=== PATIENT | female | born 1945 ===

== ENCOUNTER 2024-02-22 08:38 | Observation (INO) | payer OTHER ==
[2024-02-20 11:23] LABS: Absolute Basophils 0.1 K/uL (0-0.5); Absolute Eosinophils 0.2 K/uL (0-0.5); Absolute Lymphocytes (CBC) 1.7 K/uL (0.7-4.9); Absolute Monocytes 0.6 K/uL (0.1-1.3); Absolute Neutrophil 5.3 K/uL (1.8-8.0); Basophils % 0.8 % (0-1.3); Eosinophils % 3.1 % (0-4.4); Hematocrit 38.6 % (36.0-45.0); Lymphocytes % 21.9 % (15.3-44.8); MCH 29.7 pg (27.0-35.0); MCHC 33.7 g/dL (32.0-36.0); MCV 88.2 fL (80-100); MPV 8.2 fL (7.6-11.3); Monocytes % 7.4 % (3.3-12.3); Neutrophils % 66.8 % (41.7-73.7); Platelets 290 thou/uL (152-406); RBC Red Blood Cell Count 4.37 M/uL (3.86-4.86); Red Cell Distribution Width 13.2 % (12.1-15.2)
[2024-02-20 11:26] LABS: PT Prothrombin Time 10.5 SECONDS (9.4-12.5); PTT, Activated Partial Thromb 33.6 SECONDS (24.3-36.9); Protime INR 0.94
[2024-02-20 11:29] LABS: Specific Gravity 1.013 (1.005-1.030); Sqamous Epithelial <5 /HPF (None Seen); Urine Bacteria <20 /HPF (<20); Urine Bilirubin NEGATIVE (Negative); Urine Blood Negative (Negative); Urine Clarity Turbid (Clear); Urine Color Colorless (Yellow); Urine Culture Reflex Order NOT NEEDED; Urine Glucose NEGATIVE (Negative); Urine Ketones NEGATIVE (Negative); Urine Microscopic Reflex YN ORDER UMIC; Urine Mucus Slight /HPF (None Seen); Urine Nitrite NEGATIVE (Negative); Urine Protein NEGATIVE (Negative); Urine RBC <5 /HPF (None Seen); Urine Urobilinogen Normal (Normal); Urine pH 7.5 (5.0-7.0)
[2024-02-20 11:40] LABS: Anion Gap 8.7 mEq/L (5.0-15.0); Potassium 3.7 mEq/L (3.5-5.1)
[2024-02-22] MEDS: CEFAZOLIN SODIUM 1 GM/VIAL ONE ×2 (09:11→09:28)
[2024-02-22] MEDS: LIDOCAINE HCL/EPINEPHRINE 20 ML MDV ONE (09:28)
[2024-02-22] MEDS: NA CHLORIDE 0.9% 100 ML ONE (09:29)
[2024-02-22] MEDS: Ringers Lactate 1,000 ML IV ONE ×2 (09:30→12:45)
[2024-02-22] MEDS ORDERED: LIDOCAINE 2% MPF 5 ML VIAL ONE (09:45)
[2024-02-22] MEDS ORDERED: dexAMETHasone 10 MG/ML VIAL ONE (09:45)
[2024-02-22] MEDS ORDERED: ROCURONIUM 50 MG/5 ML VIAL IV ONE (09:45)
[2024-02-22] MEDS ORDERED: ONDANSETRON 4 MG/2 ML VIAL ONE (09:45)
[2024-02-22] MEDS ORDERED: MIDAZOLAM HCL 2 MG/2 ML INJ ONE (09:45)
[2024-02-22] MEDS ORDERED: propofoL 200 MG/20 ML VIAL IV ONE (09:45)
[2024-02-22] MEDS ORDERED: FENTANYL CITR 100 MCG/2 ML ONE (09:45)
[2024-02-22] MEDS ORDERED: KETOROLAC 30 MG/ML INJ ONE (09:45)
[2024-02-22] MEDS: NS 0.9% VIAL 10 ML ONE (09:46)
[2024-02-22] MEDS: NA CHLORIDE 0.9% 1,000 ML ONE (09:48)
[2024-02-22] MEDS: CEFAZOLIN SODIUM 2 GM/VIAL ONE (10:10)
[2024-02-22] MEDS: VASOPRESSIN 20 UNIT/ML VIAL ONE ×2 (10:10→11:47)
[2024-02-22] MEDS: NA CHLORIDE 0.9% 50 ML ONE (11:47)
[2024-02-22] MEDS ORDERED: GLYCOPYRROLATE 0.2 MG/ML SYR ONE (13:51)
[2024-02-22] MEDS ORDERED: NEOSTIGMINE 1 MG/ML -10 ML VIAL ONE (13:51)
[2024-02-22] MEDS ORDERED: MORPHINE 2 MG/ML SYR IV PRN (14:45)
[2024-02-22] MEDS ORDERED: ONDANSETRON 4 MG/2 ML VIAL IV PRN (14:45)
[2024-02-22] MEDS ORDERED: ACETAMINOPHEN 500 MG TAB PO PRN (14:45)
--- NOTE | 2024-02-22 14:51 | P.BOP ---
Preoperative diagnosis: stage 4 uterovaginal prolapse, KATHY Postoperative diagnosis: same, perineocele Primary procedure: Lefort's colpocleisis, post wall repair, perineocele repair, TO-MUS (TVT-O) Manager Play: Abigail Snider Estimated blood loss: 200 Specimen: none Findings: +1/+8/+10/6/thin/12/0/+8/+10, patent UOs Anesthesia: General Complications: None Drain(s): Urinary catheter Implants: TVT-O Fluids & blood products: LR 1300 UO 100 Transferred to: Recovery Room Condition: Good
--- OUTSIDE RECORDS SUMMARY | 2024-02-22 15:12 | XMS REPORT | Continuity of Care Document ---
Author Name Unknown Address [address] [place] [address] [facility] Address [address] [place] [address] Care Team Providers Care Patient Access Specialist Name Role Phone ALBANIA DE LA TORRE Primary Care Physician UnavailDERIAN Holland Attending Clinician UnavailMANUEL Heck Attending Clinician UnavailManuel Farias MD Attending Clinician [phone] Derian Cervantes MD Attending Clinician [phone] Radiology Attending Clinician Unavailable RADIOLOGY Attending Clinician Unavailable GC_GCBZW_Renee_S Attending Clinician UnavailMARICARMEN Saleh Attending Clinician Unavailable Maricarmen Torres Attending Clinician [phone] Unknown, Attending Attending Clinician UnavailCORAL Ahumada Attending Clinician Unavailable Coral Monge MD Attending Clinician [phone] Nurse, [facility] Attending Clinician Un available Pob, [facility] Attending Clinician Sandra Choi MD Attending Clinician [phone] SANDRA PATRICK Attending Clinician Unavailyael noonan Doctor Unassigned, [place] Attending Clinician U SUZETTE Miranda Attending Clinician Unavailable Suzette Kuhn Attending Clinician [phone] DERIAN CERVANTES Admitting Clinician MANUEL Palumbo Admitting Clinician Derian Nieves MD Admitting Clinician [phone] GC_GCBZW_Renee_S Admitting Clinician GEOVANNY Coleman Admitting Clinician UnavailSUZETTE Cruz Admitting Clinician Unavailable Payers Payer Name Policy Type Policy Number Effective Date Expirati on Date Source MEDICARE PART A \T\ B [id number] 2012 00:00:00 SHARON [id number] 2016 00:00:00 [id number] 2023 00:00:00 [id number] 2021 00:00:00 [place] [employer] [id number] 2012 00:00:00 SHAORN [id number] 2016 00:00:00 () [id number] Problems Condition Name Condition Details Condition Category Status Onset Date Resolution Date Last Treatment Date Treating Clinician Comments Source 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 2023-02 0-16 00:00: 00 [facility] Abnormal uterine bleeding Abnormal Uterine Bleeding Problem Active 2023-02 0-10 00:00: 00 [facility] Urgent desire to urinate Urgent Desire to Urinate Problem Active 4-09 00:00: 00 [facility] Atrophic vaginitis Atrophic Vaginitis Problem Active 4- 00:00: 00 [facility] Urge incontinen ce of urine Urge Incontinen ce of Urine Problem Active 4- 00:00: 00 [facility] Smearing of feces Smearing of Feces Problem Active 4- 00:00: 00 [facility] Incomplete uterovagin al prolapse Incomplete Uterovagin al Prolapse Problem Active 4- 00:00: 00 [facility] Postmenopa usal bleeding Postmenopa usal Bleeding Problem Active 06-11 00:00: 00 [facility] Incontinen ce of feces Incontinen ce of Feces Problem Active 06-11 00:00: 00 [facility] Body mass index 40+ - severely obese Body Mass Index 40+ - Severely Obese Problem Active 06-11 00:00: 00 [facility] Bladder muscle dysfunctio n - overactive Bladder Muscle Dysfunctio n - Overactive Problem Active 06-11 00:00: 00 [facility] Prolapse of female genital organs Prolapse of Female Genital Organs Problem Active 06-11 00:00: 00 [facility] Allergies, Adverse Reactions, Alerts Allergy Name Allergy Type Status Severity Reaction(s) Onset Date Inactive Date Treating Clinician Comments Source ERYTHROM YCIN DRUG Active Rash 3- 00:00: 00 [facility] SULFA (SULFONA MIDE ANTIBIOT ICS) Drug Class Active Hives 3 00:00: 00 [facility] Sulfa (Sulfona mide Antibiot ics) Propensi ty to adverse reaction s Active Hives 3 00:00: 00 [facility] Erythrom ycin Propensi ty to adverse reaction s Active Rash 04-16 00:00: 00 [facility] Sulfa (Sulfona mide Antibiot ics) Propensi ty to adverse reaction s Active [facility] sub[facility]anc [facility] Active Rash [facility] SULFA (SULFONA MIDE ANTIBIOT ICS) Allergy to substanc e Active Rash [facility] Social History Social Habit Start Date Stop Date Quantity Comments Source Gender identity [facility] Sexual orientation U [facility] History of Social function 2023-09-20 00:00:00 2023-09-20 00:00:00 [facility] Tobacco use and exposure 2023-08-10 00:00:00 2023-08-10 00:00:00 Smokeless tobacco non-user [facility] Exposure to SARS-CoV-2 (event) 2022-06-20 00:00:00 2022-06-30 13:15:00 Not sure [facility] Sex assigned at 1945 00:00:00 1945 00:00:00 [facility] Smoking Status Start Date Stop Date Source Never smoked tobacco [facility] Medications Ordered Medication Name Filled Medication Name Start Date Stop Date Current Medication? Ordering Clinician Indication Dosage Frequency Signature (SIG) Comments Components Source ceFAZolin (ANCEF) injection 10-03 14:43: 00 10-03 15:17 :42 No PRN, Starting on Mon10/04/23 at 0943, Until Mon10/04/23 at 1017, MIMI, Intra-op [facility] dexamethaso ne (DECADRON PHOSPHATE) injection 10-03 14:42: 00 10-03 17:18 :42 No PRN, Starting on Mon10/04/23 at 0942, Until Mon10/04/23 at 1218, Routine, Intra-op [facility] neomycin-po lymyxin-dex amethasone (MAXITROL) 3.5 mg/g-10,000 unit/g-0.1 % ophthalmic ointment 10-03 14:42: 00 10-03 15:17 :42 No PRN, Starting on Mon10/04/23 at 0942, Until Mon10/04/23 at 1017, Routine, Intra-op [facility] sodium chloride (NS) injection 10-03 14:42: 00 10-03 15:17 :42 No PRN, Starting on Mon10/04/23 at 0942, Until Mon10/04/23 at 1017, Routine, Intra-op [facility] carbachoL (MIOSTAT) 0.01 % intraocular injection 10-03 14:40: 00 10-03 15:17 :42 No PRN, Starting on Mon10/04/23 at 0940, Until Mon10/04/23 at 1017, Routine, Intra-op [facility] chondroitin sulf-sod hyaluronate (DUOVISC VISCO ELASTIC) intraocular injection 10-03 14:29: 00 10-03 17:18 :42 No PRN, Starting on Mon10/04/23 at 0929, Until Mon10/04/23 at 1218, Routine, Intra-op [facility] EPINEPHrine (PF) 1:1,000 (1 mg/mL) (ADRENALIN (PF)) 0.5 mL in balanced salt soln no.1 irrig. (BSS PLUS) 500 mL OR irrigation 10-03 14:28: 00 10-03 15:17 :42 No PRN, Starting on Mon10/04/23 at 0928, Intra-op [facility] tetracaine (PONTOCAINE ) 0.5 % ophthalmic drops 10-03 14:28: 00 10-03 15:17 :42 No PRN, Starting on Mon10/04/23 at 0928, Until Mon10/04/23 at 1017, Routine, Intra-op [facility] water for irrigation irrigation solution 10-03 14:22: 00 10-03 17:18 :42 No PRN, Starting on Mon10/04/23 at 0922, Until Mon10/04/23 at 1218, Routine, Intra-op [facility] Hyaluronida se, Human Recomb. (HYLENEX) injection 10-03 14:19: 00 10-03 15:17 :42 No PRN, Starting on Mon10/04/23 at 0919, Until Mon10/04/23 at 1017, Routine, Intra-op [facility] eye block syringe 11 mL 10-03 14:19: 00 10-03 15:17 :42 No PRN, Starting on Mon10/04/23 at 0919, Until Mon10/04/23 at 1017, Intra-op [facility] cyclopent 1%-tropic 1%-phenyl 2.5%-ketor 0.5% (MYDRIATIC #5) ophthalmic solution syringe 0.5 mL 10-03 13:15: 00 10-03 13:09 :00 No .5mL 0.5 mL, Right Eye, ONCE, 1 dose, On Mon10/04/23 at 0815, Routine, DSU Pre-op [facility] lactated ringers IV infusion 1,000 mL 10-03 13:15: 00 10-03 13:16 :00 No 1000mL at 42 mL/hr, 1,000 mL, IV Infusion, ONCE, 1 dose, On Mon10/04/23 at 0815, Routine, DSU Pre-op [facility] olmesartan medoxomil (OLMESARTAN ORAL) 10-03 10:18: 41 Yes 100mg Take by mouth daily. [facility] indapamide 2.5 mg tablet 10-03 10:18: 41 Yes 2.5mg Take 1 tablet by mouth in the morning. [facility] ezetimibe 10 mg tablet 10-03 10:18: 41 Yes 10mg Take 1 tablet by mouth in the morning. [facility] CILOSTAZOL ORAL 03-04 17:00: 17 Yes Take by mouth. [facility] ezetimibe 10 mg tablet 03-04 17:00: 17 Yes 10mg Take 1 tablet by mouth in the morning. [facility] methylPREDN ISolone (MEDROL, CARMENZA,) 4 mg tablets 03-04 00:00: 00 Yes [id number] follow package directions [facility] benzonatate 200 mg capsule 03-04 00:00: 00 03-15 05:59 :00 No [id number] 200mg Take 1 capsule by mouth 3 (three) times daily as needed for Cough for up to 10 days. [facility] amoxicillin -clavulanat e (AUGMENTIN) 875-125 mg per tablet 03-04 00:00: 00 03-12 05:59 :00 No [id number] 1{tbl} Take 1 tablet by mouth in the morning and 1 tablet in the evening. Do all this for 7 days. [facility] furosemide (LASIX) injection 40 mg 2022-02 18:00: 00 01-11 18:13 :00 No [id number] 40mg 40 mg, Slow IV Push, ONCE, 1 dose, On Mon01/11/23 at 1200, Routine [facility] tc 99m-mertiat dylon (TECHNESCAN MAG3) injection 9.95 millicurie 2022-02 16:15: 00 01-11 16:26 :00 No [id number] 9.95mCi 9.95 millicurie , Intravenou s, ONCE, 1 dose, On Mon01/11/23 at 1030, Routine [facility] iopamidol (ISOVUE 370-500 mL) injection 70 mL 09-27 23:15: 00 09-27 23:15 :00 No [id number] 70mL 70 mL, Intravenou s, ONCE, 1 dose, On Mon09/27/22 at 1815, Routine [facility] CILOSTAZOL ORAL 04-16 19:04: 28 Yes Take by mouth. [facility] INDAPAMIDE ORAL 04-16 19:04: 28 Yes Take by mouth. [facility] ezetimibe 10 mg tablet 04-16 19:04: 28 Yes 10mg Take 10 mg by mouth daily. [facility] CILOSTAZOL ORAL 04-16 13:04: 28 Yes Take by mouth. [facility] ezetimibe 10 mg tablet 04-16 13:04: 28 Yes 10mg Take 10 mg by mouth daily. [facility] valsartan 320 mg tablet 03-17 00:00: 00 Yes [facility] cilostazol 100 mg tablet cilostazol 100 mg tablet No cilostazol 100 mg tablet [facility] estradiol 0.01% (0.1 mg/gram) vaginal cream Insert 0.5 g 3 times a week by vaginal route as directed for 90 days. estradiol 0.01% (0.1 mg/gram) vaginal cream Insert 0.5 g 3 times a week by vaginal route as directed for 90 days. No .5g Q56H estradiol 0.01% (0.1 mg/gram) vaginal cream Insert 0.5 g 3 times a week by vaginal route as directed for 90 days. [facility] magnesium magnesium No magnesium [facility] olmesartan 40 mg tablet olmesartan 40 mg tablet No olmesartan 40 mg tablet [facility] Vitamin D3 25 mcg Vitamin D3 25 mcg No Vitamin D3 25 mcg [facility] Vital Signs Vital Name Observation Time Observation Value Comments S ource BMI (Body Mass Index) 2024-02-20 00:00:00 44.1 kg/m2 [facility] Body Weight 2024-02-20 00:00:00 249.2 [lb_av] [facility] BP Systolic 2024-02-20 00:00:00 141 mm[Hg] [facility] BP Diastolic 2024-02-20 00:00:00 62 mm[Hg] [facility] Height 2024-02-20 00:00:00 63 [in_i] [facility] Body Weight 2023-11-23 00:00:00 252.4 [lb_av] [facility] BMI (Body Mass Index) 2023-11-23 00:00:00 44.7 kg/m2 [facility] BP Systolic 2023-11-23 00:00:00 131 mm[Hg] [facility] BP Diastolic 2023-11-23 00:00:00 73 mm[Hg] [facility] Height 2023-11-23 00:00:00 63 [in_i] [facility] Systolic blood pressure 2023-10-04 15:05:00 140 mm[Hg] [facility] Diastolic blood pressure 2023-10-04 15:05:00 72 mm[Hg] [facility] Heart rate 2023-10-04 15:05:00 75 /min [facility] Respiratory rate 2023-10-04 15:05:00 22 /min [facility] Oxygen saturation in Arterial blood by Pulse oximetry 2023-10-04 15:05:00 96 /min [facility] Body temperature 2023-10-04 14:50:00 36.56 Mary [facility] Body height 2023-09-20 20:00:00 160 cm [facility] Body weight 2023-09-20 20:00:00 114.306 kg [facility] BMI 2023-09-20 20:00:00 44.65 kg/m2 [facility] Systolic blood pressure 2023-10-04 13:09:00 150 mm[Hg] [facility] Diastolic blood pressure 2023-10-04 13:09:00 87 mm[Hg] [facility] Heart rate 2023-10-04 13:09:00 86 /min [facility] Body temperature 2023-10-04 13:09:00 36.44 Mary [facility] Respiratory rate 2023-10-04 13:09:00 16 /min [facility] Oxygen saturation in Arterial blood by Pulse oximetry 2023-10-04 13:09:00 97 /min [facility] Body height 2023-09-20 20:00:00 160 cm [facility] Body weight 2023-09-20 20:00:00 114.306 kg [facility] BMI 2023-09-20 20:00:00 44.65 kg/m2 [facility] BP Systolic 2023-05-23 00:00:00 161 mm[Hg] [facility] Body Weight 2023-05-23 00:00:00 252.4 [lb_av] [facility] Height 2023-05-23 00:00:00 63 [in_i] [facility] BP Diastolic 2023-05-23 00:00:00 85 mm[Hg] [facility] BMI (Body Mass Index) 2023-05-23 00:00:00 44.7 kg/m2 [facility] BMI (Body Mass Index) 2023-05-17 00:00:00 44.7 kg/m2 [facility] Height 2023-05-17 00:00:00 63 [in_i] [facility] BP Systolic 2023-05-17 00:00:00 165 mm[Hg] [facility] Body Weight 2023-05-17 00:00:00 252.4 [lb_av] [facility] BP Diastolic 2023-05-17 00:00:00 92 mm[Hg] [facility] Systolic blood pressure 2023-03-04 22:59:00 108 mm[Hg] [facility] Diastolic blood pressure 2023-03-04 22:59:00 70 mm[Hg] [facility] Heart rate 2023-03-04 22:59:00 81 /min [facility] Body temperature 2023-03-04 22:59:00 36.78 Mary [facility] Respiratory rate 2023-03-04 22:59:00 17 /min [facility] Body weight 2023-03-04 22:59:00 112.209 kg [facility] Oxygen saturation in Arterial blood by Pulse oximetry 2023-03-04 22:59:00 97 /min [facility] Systolic blood pressure 2022-09-28 01:11:00 174 mm[Hg] [facility] Diastolic blood pressure 2022-09-28 01:11:00 85 mm[Hg] [facility] Heart rate 2022-09-28 01:11:00 73 /min [facility] Respiratory rate 2022-09-28 01:11:00 16 /min [facility] Oxygen saturation in Arterial blood by Pulse oximetry 2022-09-28 01:11:00 96 /min [facility] Body temperature 2022-09-27 19:39:00 36.83 Mary [facility] Body weight 2022-09-27 19:39:00 117.935 kg [facility] Systolic blood pressure 2022-09-27 19:07:00 123 mm[Hg] [facility] Diastolic blood pressure 2022-09-27 19:07:00 81 mm[Hg] [facility] Heart rate 2022-09-27 19:07:00 99 /min [facility] Body temperature 2022-09-27 19:07:00 37.11 Mary [facility] Respiratory rate 2022-09-27 19:07:00 16 /min [facility] Body weight 2022-09-27 19:07:00 117.935 kg [facility] Oxygen saturation in Arterial blood by Pulse oximetry 2022-09-27 19:07:00 96 /min [facility] Procedures Procedure Date / Time Performed Performing Clinician Source DUPLEX VENOUS LEG RIGHT - BY VASCULAR LAB 2023-12-07 18:30:01 Manuel Bhat [facility] [id number] - [place] XCAPSL CTRC RMVL INSJ IO LENS PROSTH W/O ECP 2023-10-04 14:04:00 Derian Cervantes [facility] Cystourethroscopy 2023-05-23 00:00:00 [facility] US, transvaginal 2023-05-19 00:00:00 [facility] NM RENAL FLOW FUNCTION WITH PHARMACOLOGICAL INTERVENTION 2023-01-11 19:10:54 Requisition, Paper [facility] TROPONIN I 2022-09-27 23:50:00 [facility]al [facility] CT ANGIOGRAM CHEST 2022-09-27 22:20:10 Coral Monge [facility] CT ANGIOGRAM ABDOMEN/PELVIS 2022-09-27 22:20:10 Coral Monge [facility] ASSIGNMENT OF BENEFITS 2022-09-27 20:57:07 Docto r Unassigned, [place] [facility] XR CHEST 1 VW 2022-09-27 20:44:10 Coral Monge [facility] TROPONIN I 2022-09-27 20:03:00 Coral Monge [facility] COMP. METABOLIC PANEL ([id number]) 2022-09-27 20:03:00 Coral Monge [facility] CBC WITH DIFF 2022-09-27 20:03:00 Coral Monge [facility] PROTHROMBIN TIME / INR 2022-09-27 20:03:00 Thaddeus Monge [facility] ACTIVATED PARTIAL THRMPLAS AMINAH 2022-09-27 20:03:00 Coral Monge [facility] CONSENT/REFUSAL FOR DIAGNOSIS AND TREATMENT 2022-09-27 19:27:49 Doctor Unassigned, [place] [facility] DEXA AXIAL (HIP AND SPINE) 2022-06-30 19:18:19 Requisi tion, Paper [facility] ASSIGNMENT OF BENEFITS 2022-06-02 20:12:51 Docto r Unassigned, [place] [facility] PHYSICIAN ORDERS 2020-06-02 05:01:00 Doctor Unas signed, [place] [facility] BI SCREENING MAMMOGRAM BILATERAL 2020-01-08 17:32:00 Requisition, [facility] ASSIGNMENT OF BENEFITS 2020-01-08 17:06:11 Docto r Unassigned, [place] [facility] Colonoscopy 2005-02-13 00:00:00 Diana Gutierrez edical Ligation of Fallopian Tube 1980-02-14 00:00:00 [facility] Encounters Start Date/Time End Date/Time Encounter Type Admission Type Attending [facility] Facility Care Department Encounter ID Source 2023-08-11 16:26:58 Outpatient DERIAN DIAZ [facility] OPH [id number] [facility] 2024-02-20 00:00:00 2024-02-20 00:00:00 CLINT Taylor: [address], [place] [address] , Ph. [facility] - GC_GCBZW_Jolly Lemus* [id number] [facility] 2023-12-07 12:12:13 2023-12-07 23:59:00 Outpatient R MANUEL BHAT [facility] [id number] [facility] 2023-12-07 12:12:13 2023-12-07 23:59:00 Hospital Encounter Manuel Bhat [facility] [id number] 350.1.13.10 4.2.7.2.686 [id number] [facility] 2023-11-29 00:00:00 2023-11-29 00:00:00 Manuel Bhat MD: [address], [place] [id number] , Ph. [facility] GC_GCBZW_Jolly Lemus* [id number] [facility] 2023-11-23 00:00:00 2023-11-23 00:00:00 Manuel Bhat MD: [address], [place] [address] , Ph. [facility] - GC_GCBZW_Jolly Lemus* [id number] [facility] 2023-10-04 07:56:00 2023-10-04 10:18:00 Outpatient DERIAN DIAZ [facility] OPH [id number] [facility] 2023-10-04 07:56:00 2023-10-04 10:18:00 Hospital Encounter Derian Cervantes [facility] [id number] 350.1.13.10 4.2.7.2.686 [id number] [facility] 2023-10-04 08:59:00 2023-10-04 09:32:00 Surgery Derian Cervantes [facility] [id number] 350.1.13.10 4.2.7.2.686 [id number] [facility] 2023-07-28 13:31:39 2023-07-28 23:59:00 Hospital Encounter Radiology [facility] 1.2.840.114 350.1.13.10 4.2.7.2.686 [id number] [facility] 2023-07-28 13:30:09 2023-07-28 13:30:09 Outpatient R RADIOLOGY [facility] [id number] [facility] 2023-07-28 13:30:09 2023-07-28 13:30:09 Hospital Encounter Radiology [facility] [id number] 350.1.13.10 4.2.7.2.686 [id number] [facility] 2023-05-30 00:00:00 2023-05-30 00:00:00 CLINT Taylor: [address], [place] [address] , Ph. [facility] - GC_GCBZW_Jolly [facility]* [id number] [facility] 2023-05-25 00:00:00 2023-05-25 00:00:00 Outpatient GC_GCBZW_Humphrey jefferson_Praveen [facility] [id number] [facility] 2023-05-23 00:00:00 2023-05-23 00:00:00 Manuel Bhat MD: [address], [place] [id number] , Ph. [facility] - GC_GCBZW_La delfina Allan* [id number] [facility] 2023-05-19 00:00:00 2023-05-19 00:00:00 Outpatient GC_GCBZW_Ka diyala_S [facility] [id number] [facility] 2023-05-19 00:00:00 2023-05-19 00:00:00 Manuel Bhat MD: [address], [place] [id number] , Ph. [facility] - GC_GCBZW_Jolly mathis Allan* [id number] [facility] 2023-05-17 00:00:00 2023-05-17 00:00:00 Outpatient GC_GCBZW_Ka diyala_S [facility] [id number] [facility] 2023-05-17 00:00:00 2023-05-17 00:00:00 Manuel Bhat MD: [address], [facility] [address], [place] [id number] , Ph. [facility] - GC_GCBZW_Jolly mathis Allan* [id number] [facility] 2023-03-04 16:40:00 2023-03-04 17:27:33 Outpatient R MARICARMEN VANN [facility] [id number] [facility] 2023-03-04 16:40:00 2023-03-04 17:27:33 Urgent Care Maricarmen Vann Unknown, Attending [facility] 1.2.840.114 350.1.13.10 4.2.7.2.686 [id number] [facility] 2023-01-11 09:50:15 2023-01-11 23:59:00 Outpatient R RADIOLOGY [facility] [id number] [facility] 2023-01-11 09:50:15 2023-01-11 23:59:00 Hospital Encounter Radiology [facility] 1.2.840.114 350.1.13.10 4.2.7.2.686 [id number] [facility] 2023-01-02 00:00:00 2023-01-02 00:00:00 Outpatient R RADIOLOGY [facility] [id number] [facility] 2022-11-25 09:47:10 2022-11-25 23:59:00 Hospital Encounter Radiology [facility] 1.2.840.114 350.1.13.10 4.2.7.2.686 [id number] [facility] 2022-11-25 00:00:00 2022-11-25 23:59:00 Outpatient R RADIOLOGY [facility] [id number] [facility] 2022-10-19 10:42:50 2022-10-19 23:59:00 Hospital Encounter Radiology [facility] 1.2.840.114 350.1.13.10 4.2.7.2.686 [id number] [facility] 2022-10-19 00:00:00 2022-10-19 23:59:00 Outpatient R RADIOLOGY [facility] [id number] [facility] 2022-09-27 14:42:00 2022-09-27 20:16:00 Emergency X CORAL MONGE [facility] ERT [id number] [facility] 2022-09-27 14:42:00 2022-09-27 20:16:00 Emergency Coral Monge [facility] 1.2.840.114 350.1.13.10 4.2.7.2.686 [id number] [facility] 2022-09-27 14:00:00 2022-09-27 14:05:31 Outpatient R MARICARMEN VANN [facility] [id number] [facility] 2022-09-27 14:00:00 2022-09-27 14:05:31 [facility] 1.114 350.1.13.10 4.2.7.2.686 [id number] [facility] 2022-06-30 13:18:51 2022-06-30 23:59:00 Hospital Encounter Radiology [facility] 1.0.114 350.1.13.10 4.2.7.2.686 [id number] [facility] 2022-06-30 13:15:53 2022-06-30 13:17:00 Outpatient R RADIOLOGY [facility] [id number] [facility] 2022-06-30 13:15:53 2022-06-30 13:17:00 Hospital Encounter Radiology [facility] 1..114 350.1.13.10 4.2.7.2.686 [id number] [facility] 2022-06-02 15:15:00 2022-06-02 15:30:00 Dairy Equipment Repairer Visit Pob, Adc Lab Main Sandra Patrick [facility] 1.114 350.1.13.10 4.2.7.2.686 [id number] [facility] 2022-06-02 15:15:00 2022-06-02 15:15:00 Outpatient R SANDRA PATRICK [facility] [id number] [facility] 2022-06-02 00:00:00 2022-06-02 00:00:00 Orders Only Doctor Unassigned, [place] [facility] 1.0.114 350.1.13.10 4.2.7.2.686 [id number] [facility] 2021-07-23 10:30:00 2021-07-23 10:45:00 Dairy Equipment Repairer Visit Pob, Adc Lab Main Sandra Patrick [facility] 1..840.114 350.1.13.10 4.2.7.2.686 [id number] [facility] 2021-07-23 10:30:00 2021-07-23 10:30:00 Outpatient SANDRA STRONG [facility] [id number] [facility] 2021-07-22 14:57:39 2021-07-22 23:59:00 Outpatient SUZETTE BALDWIN [facility] [id number] [facility] 2021-07-22 14:57:39 2021-07-22 23:59:00 Hospital Encounter Hattie [facility] 1.840.114 350..13.10 4.2.7.2.686 [id number] [facility] 2021-05-03 13:24:17 2021-05-03 23:59:00 Outpatient R SUZETTE KUHN [facility] [id number] [facility] 2021-05-03 13:24:17 2021-05-03 23:59:00 Hospital Encounter Hattie [facility] 1..840.114 350.1.13.10 4.2.7.2.686 [id number] [facility] 2021-02-24 00:00:00 2021-02-24 00:00:00 Outpatient SUZETTE BALDWIN [facility] [id number] [facility] 2020-06-02 14:36:48 2020-06-02 14:51:48 Dairy Equipment Repairer Visit Pob, Adc Lab Main Hattie [facility] 1..840.114 350.1.13.10 4.2.7.2.686 [id number] [facility] 2020-06-02 14:30:00 2020-06-02 14:30:00 Outpatient SUZETTE BALDWIN [facility] [id number] [facility] 2020-06-02 00:00:00 2020-06-02 00:00:00 Orders Only Doctor Unassigned, [place] [facility] 1.2.840.114 350.1.13.10 4.2.7.2.686 [id number] [facility] 2020-01-08 11:08:04 2020-01-08 23:59:00 Hospital Encounter Suzette Kuhn [facility] 1.2.840.114 350.1.13.10 4.2.7.2.686 [id number] [facility] 2020-01-08 00:00:00 2020-01-08 00:00:[address] KUHN [facility] [id number] [facility] 2020-01-08 00:00:00 2020-01-08 00:00:00 Orders Only Doctor Unassigned, [place] [facility] 1.2.840.114 350.1.13.10 4.2.7.2.686 [id number] [facility] Results Test Description Test Time Test Comments Results Result Co mments Source [facility] MedicalUrinalysis macro (dipstick) panel - [id number] 08:57:33* Test Item Value Reference Range Interpretation Comme nts Leukocytes (test code = Leukocytes) 2+ Nitrite (test code = Nitrite) negative Urobilinogen (test code = Urobilinogen) Normal Protein (test code = Protein) Negative pH (test code = pH) 6.5 Blood (test code = Blood) Negative Specific [place] (test code = Specific [place]) 1.015 Ketone (test code = Ketone) Negative Bilirubin (test code = Bilirubin) Negative Glucose (test code = Glucose) Negative Appearance (test code = Appearance) Slightly Cloudy Color (test code = Color) Yellow [facility] Medical[facility]inalysis macro (dipstick) panel - [id number] 13:24:00* Test Item Value Reference Range Interpretation Comme nts Leukocytes (test code = Leukocytes) Negative Nitrite (test code = Nitrite) negative Urobilinogen (test code = Urobilinogen) Normal Protein (test code = Protein) Negative pH (test code = pH) 7.0 Blood (test code = Blood) Negative Specific [place] (test code = Specific [place]) 1.010 Ketone (test code = Ketone) Negative Bilirubin (test code = Bilirubin) Negative Glucose (test code = Glucose) Negative Appearance (test code = Appearance) Clear Color (test code = Color) Yellow [facility] MedicalTROPONIN [id number] 00:32:54* Test Item Value Reference Range Interpretation Comme nts TROPONIN I (test code = 5498538368) 0.004 ng/mL <=0.034 VALENTÍN (test code = VALENTÍN) Reference (Normal) Range (defined by the 99th percentile reference limit): <= 0.034 ng/mL Note: Cardiac troponin begins to rise 3-4 hours after the onset of ischemia. Repeat in 4-6 hours if the sample was drawn within 3-4 hours of the onset of the symptom and found normal. Diagnosis of myocardial injury is made with acute changes in cTn concentrations with at least one serial sample above the 99th percentile upper reference limit (URL), taken together with the patient's clinical presentation. Biotin has been reported to cause a negative bias, interpret results relative to patient's use of biotin. Lab Interpretation (test code = 17789-0) Normal [facility] SCREENING MAMMOGRAM [id number] 18:04:59Examination:BI SCREENING MAMMOGRAM BILATERAL History:Patient is 74 year old and is seen for: ?Visitfor screening mammogram. Computer-aided detection (CAD) utilized. Comparisons: 12/20/2018 BI SCREENING MAMMOGRAM BILATERAL, 11/14/2017 BI SCREENING TOMOSYNTHESIS BILATERAL, 10/12/2015 DIGITAL MAMMOGRAM, SCREENING, and 09/05/2014 DIGITAL MAMMOGRAM, SCREENING Findings:The breasts have scattered areasof fibroglandular density. LeftThere are round calcifications in a grouped distribution seen in theupper inner quadrant of the left breast in the middle depth, 7.5 cm from the nipple. Compared to the previous study, there are no significant changes. RightThere are round and rim calcifications in a diffuse distribution seen in the right breast. Compared to the previous study, there are no significant changes. Impression:No signs of malignancy. Recommendation:Annual mammographic follow-up - Bilateral BI-RADS Category: [facility] and Physical Notes Date/Time Note Provider Source 2023-10-04 08:16:42 H&P Update H&P was reviewed and the patient was examined and there was no change in the patient's condition. [facility]
[2024-02-22] MEDS: HEPARIN 5000 UNIT/ML 1 ML VIAL SQ SCH (16:28)
[2024-02-22] MEDS: Ringers Lactate 1,000 ML IV SCH (16:29)
[2024-02-22 16:51] VITALS: BMI 44.6
--- NOTE | 2024-02-22 20:31 | OP ---
Date of Procedure: 02/22/2024 Surgeon: Alpa Duran MD Scorer Helper: Abigail Tellez. Preoperative Diagnoses: Stage IV uterovaginal prolapse, stress urinary incontinence. Postoperative Diagnoses: Stage IV uterovaginal prolapse, stress urinary incontinence, and large francia neocele. Procedures Performed: 1.[place] colpocleisis. 2.Posterior wall repair. 3.Perineocele repair. 4.Transobturator mid urethral sling (TVT-O) and cystoscopy. Estimated Blood Loss: 200. Anesthesia: General endotracheal. Specimens: No specimens. Complications: No complications. Drains: Formna catheter and vaginal packing. Implants: TVT-O. Fluids: 1300. Urine Output: 100. Disposition: Transferred to the recovery room in a stable condition. Findings: POP-Q +1, +8, +10, 6, thin, 12, 0, +8, and +10. Patent ureters on cystoscopy. Did not ne ed to remove part of the cervix, as it was easy to perform the colpocleisis without doing this. Indications: The patient is a 78-year-old female presenting with significant vaginal bulge symptoms and urinary symptoms, incontinence, and voiding problems. She was evaluated with ultrasound, then wi th a urodynamic study and cystoscopy. There was no pathology in the uterus; fibroids worst, largest was 1.9 cm. Given all her medical conditions and after obtaining the cardiac clearance, proceeded wi th discussing about options that she declined, pessary. Surgical management was preferred for her an d she was not sexually planning to be active; and therefore, closure and reconstruction were both rev iewed, and the patient wanted to proceed with a vaginal closure procedure, understanding that this is permanent and she was consented for this. She was re consented in the preoperative area for a colpocleisis, which would include creating channe ls on both sides and closing the anterior and posterior vaginal bolton and leave a small atrium off 1- 3 cm of vaginal stump and maintain the vaginal outlet at an adequate size for voiding, and the patien t was understanding of this procedure and consented. Her and daughter were present at the bedside and re-consented. Description Of Procedure: She was taken back to the OR, placed in supine fashion on the operating ta ble. General anesthesia was given. She was placed in a dorsal lithotomy position using Junito stirru ps. Lower abdomen, vulva, vagina, perineum, and medial thighs were prepped with Betadine and draped in a sterile fashion. A [place] retractor was used for retraction using perforating hooks. Forman was placed to drain the bladder and then clamped and retracted superiorly. After evaluation and POP-Q assessment, I also co nsented the patient for trachelectomy if needed, as she did have cervical elongation preoperatively; however, in the OR, during the evaluation, due to the elongation of the vaginal length and significan t length being present, a trachelectomy was not needed and I could create channels on both sides with out any problems; and therefore, spencer out both the anterior and posterior wall trapezoids matching ea ch other leaving distal 3 cm of the vaginal wall. Once all the markings were made and symmetrical ch annels planned for both sides, the vaginal bolton were infiltrated with dilute vasopressin 40 units in 100 mL of normal saline, 40 mL was injected on the anterior wall. Then, a 15 blade was used to make incisions all around the trapezoid and then bisected in the middle. The vaginal epithelium was denu ded, preserving as much of the fascia as possible, and the second half of the trapezoid was also take n down. Hemostasis was secured with the help of 3-0 Vicryl sutures as needed and Bovie. Similar mapping, infiltration, and excision of the vaginal epithelium was performed on the posterior wall as well. Then, once hemostasis was secured in a similar fashion, then the channels were created . Starting on the left end of the transverse portion of the canal near the cervix, a 2-0 Vicryl suture was used to create the channel starting with the vagina and suturing of the subcutaneous tissues lisa g with the fascia, fascial remnants and connective tissue on both sides of the channel to invaginate and bring the epithelial surfaces that were cut together in a continuous running fashion. Imbricatin g sutures were placed to create the channel all the way along the transverse portion in the proximal most part. Then, the right lateral channel was created all the way down to the left lateral sulcus d istally 3 cm above the hymen. In a similar fashion, the channel on the right side was then reconstru cted and completed distally to match the opposite side. 2-0 Vicryl sutures were then run in a transverse fashion bringing the anterior and posterior bolton to gether, reducing the anterior and posterior enteroceles. Two layers of these sutures were placed in a continuous running fashion. Then, an interrupted 2-0 Vicryl sutures were placed x8 in order to sabra se the defect in the anteroposterior direction. Once this was done, there was no excessive tension o n the urethra. Posterior repair was performed by creating a seng-shaped incision by drawing out a seng-shaped outline on the remaining posterior wall and the perineum infiltrating this with dilute vasopressin 10 mL, and then the scalpel was used to outline this vaginal epithelium. The epithelium was denuded an d carefully the perineocele was dissected. The perineocele was dissected carefully identifying the structures of the perineum, the superficial a nd deep transverse perineum, the external sphincter posteriorly, and the rectovaginal septum or the c onnective tissue in the distal portion. This had remnants that were significantly, but onc e dissection was carried to the lateral sulci on both sides, then I was able to bring this together w ith two 2-0 Vicryl [id number] sutures. Once this was connected immediately distal to the closur e, then perineocele repair was performed. The perineocele structures were identified. I made an effort not to bring the levator muscles togeth er to prevent vestibular pain. 2-0 Vicryl sutures were taken and in layers all the fascial layers we re reconstructed in a continuous running fashion. Once the 3 layers were done, then I was able to cl ose the posterior wall incision with continuous running 2-0 Vicryl, then continuous running 2-0 Vicry l was taken down in the subcutaneous fashion all the way down in subcuticular fashion in a horizontal mattress style coming up and the suture was tied in the vestibule. The rectovaginal exam was perfor med and there was an adequate thickness here. No evidence of any trauma to the rectum. Mid urethral sling: Mid urethral area was picked up with 2 Allis clamps, injected with dilute vasopr essin 10 mL, and tunnels made underneath the fascia towards the ipsilateral obturator space and after perforating the obturator membrane and expanding the tunnel on both sides, the wing guide was placed , dilator and needle were passed hugging the pubic ramus and exiting 2 cm lateral to the groin crease and exit point slightly above the external urethral meatus. The dilator was brought out. Mesh and plastic sheaths were held with a Cecilia clamp and the dilator cut out. Similar pass taken on the oppo site side as well. The mesh was tensioned in the middle with Metzenbaum scissors in between the uret hra and the sling, leaving adequate space tensioning probably and then sheaths removed. Mesh cut, fl ushed with the skin and skin incisions closed with Dermabond. Vaginal epithelial closure was done af ter irrigation with antibiotic solution in a continuous running fashion with 3-0 Vicryl with excellen t hemostasis. Forman was removed, and cystoscopy was performed with 30-degree lens, normal saline, an d 17-[place] sheath. Excellent jets of urine from both ureteric orifices. No evidence of any trauma or foreign body in the bladder. The bladder was drained. The Forman was replaced. The patient was r ecovered from anesthesia and taken to the PACU in a stable condition, and her and daughter we re deep briefed about the procedure. She will have her catheter out tomorrow morning and will have a voiding trial and if she passes, then she will go home without a catheter, otherwise with the catheter and follow up in 3 days at the office. VEDA/CHARLOTTE Voice ID: [id number] Report ID: [id number]
[2024-02-23] MEDS: VALSARTAN 160 MG TAB PO SCH (08:50)
[2024-02-23] MEDS: INDAPAMIDE 2.5 MG PO SCH (09:00)
[2024-02-23] MEDS ORDERED: HOME MED 1 EA UNK (Olmesartan Medoxomil [Benicar] 40 MG Tablet) PO SCH (09:00)
[2024-02-23 09:03] VITALS: BP 133/60
[2024-02-23 09:12] VITALS: TEMP 98.7
[2024-02-23 09:42] VITALS: O2SAT 95
== END 2024-02-23 10:40 | disposition home or self-care (01) ==
LOC: OR 08:38 → 2ND 15:07
PROVIDERS: ADMIT Obstetrics & Gynecology; ATTEND Obstetrics & Gynecology
PROC: 0KQM0ZZ Repair Perineum Muscle, Open Approach (ICD-10-PCS; 2024-02-22)
PROC: 0TSD0ZZ Reposition Urethra, Open Approach (ICD-10-PCS; 2024-02-22)
PROC: 0ULG7ZZ Occlusion of Vagina, Via Natural or Artificial Opening (ICD-10-PCS; principal; 2024-02-22 10:30)
DX: N81.3 Complete uterovaginal prolapse (principal); N95.0 Postmenopausal bleeding; N39.3 Stress incontinence (female) (male)
CPT/HCPCS: 85025; 81001; 80048; 36415; 86900; 86850; 85610; 86901; 85730; 94010 ×2; 57120; 57250; 57288; J1644 ×3; A4216; J2704; J2710; J2003; J2250; J3010; J1100; J2405; J7120 ×5; J7030; J0690 ×2; A4314; G0378; G0379